=== PATIENT | male | born 2000 | race African-American/Black ===

== ENCOUNTER 2023-09-23 06:09 | Emergency (ER) | payer OTHER ==
[~2023-09-23] VITALS: Ht 188 cm; Wt 77.7 kg
[~2023-09-23 06:09] MED LIST: LISI10TA22 PO; OMEP1CAP73 PO; TRAZ-252 PO; med rec comment
[2023-09-23] MEDS ORDERED: GNPLIQ67 PO (06:17)
[2023-09-23] MEDS ORDERED: MELA10CA PO (06:17)
[2023-09-23] MEDS ORDERED: MED REC IN PROGRESS XX SCH (08:20)
[2023-09-23 08:52] LABS: METHADONE URINE NEGATIVE (NEGATIVE); OPIATES URINE NEGATIVE (NEGATIVE)
[2023-09-23 08:53] LABS: AMPHETAMINES LEVEL URINE NEGATIVE (NEGATIVE); BARBITURATES URINE NEGATIVE (NEGATIVE); BENZODIAZEPINES URINE NEGATIVE (NEGATIVE); CANNABINOIDS URINE NEGATIVE (NEGATIVE); COCAINE METABOLITE URINE NEGATIVE (NEGATIVE); PHENCYCLIDINE URINE NEGATIVE (NEGATIVE)
[2023-09-23 09:13] LABS: HEMOGLOBIN 14.8 g/dl (13.5-17.5); MEAN CORPUSCULAR HGB CONC 35.2 g/dl (32.0-36.5); MEAN CORPUSCULAR VOLUME 93.5 fl (80.0-96.0); PLATELET COUNT, AUTOMATED 271 10^3/uL (150-450); RED BLOOD COUNT 4.49 10^6/uL (4.30-6.10)
[2023-09-23 09:44] LABS: ETHYL ALCOHOL (ETHANOL) < 0.003 % (0.000-0.010)
[2023-09-23 09:46] LABS: ALBUMIN 4.9 G/DL (3.2-5.2); ALKALINE PHOSPHATASE 65 U/L (46-116); ALT/SGPT 24 U/L (7.0-40); AST/SGOT 53 U/L (<34); BILIRUBIN,DIRECT 0.3 MG/DL (<0.4); BILIRUBIN,TOTAL 0.9 MG/DL (0.3-1.2); BLOOD UREA NITROGEN 8 MG/DL (9-23); CALCIUM LEVEL 10.2 MG/DL (8.5-10.1); CARBON DIOXIDE LEVEL 28 MMOL/L (20-31); CHLORIDE LEVEL 100 MMOL/L (98-107); CREATININE FOR GFR 0.88 MG/DL (0.70-1.30); GLOMERULAR FILTRATION RATE > 60.0 (>60); GLUCOSE, FASTING 97 MG/DL (60-100); POTASSIUM SERUM 3.9 MMOL/L (3.5-5.1); SALICYLATE LEVEL < 3.0 MG/DL (<30); SODIUM LEVEL 138 MMOL/L (136-145); TOTAL PROTEIN 8.5 G/DL (5.7-8.2)
[2023-09-23 09:48] LABS: THYROID STIMULATING HORMONE 3.375 uIU/ML (0.55-4.78)
[2023-09-23] MEDS ORDERED: MED REC CURRENTLY UNOBTAINABLE XX SCH (10:00)
[2023-09-23] MEDS ORDERED: HOME MED LIST COMPLETE! XX SCH (10:45)
[2023-09-23] MEDS ORDERED: traZODone 50 MG TAB PO PRN (11:30)
[2023-09-23] MEDS: OMEPRAZOLE 20MG CAP PO SCH ×2 (11:50→14:10)
[2023-09-23 14:30] VITALS: BP 130/86; TEMP 97.7; O2SAT 100
== END 2023-09-23 15:03 ==
LOC: M ED 06:09
DX: R44.0 Auditory hallucinations (principal); I10 Essential (primary) hypertension

== ENCOUNTER 2023-10-29 10:27 | Inpatient (IN) | payer OTHER ==
[~2023-10-29] VITALS: Ht 188 cm; Wt 78.4 kg
[~2023-10-29 10:27] MED LIST changes: +GNPLIQ67 PO; +MELA10CA PO
[2023-10-29] MEDS: NS 1,000 ML IV ONE ×3 (12:24→17:56)
[2023-10-29] MEDS: diazePAM 5MG TABLET PO ONE (12:24)
[2023-10-29 12:46] LABS: BASO % 0.2 % (0.0-1.0); HEMATOCRIT 40.3 % (42.0-52.0); LYMPH # 0.9 10^3/uL (1.5-5.0); LYMPH % 19.4 % (24.0-44.0); MEAN CORPUSCULAR HEMOGLOBIN 34.2 pg (27.0-33.0); MEAN CORPUSCULAR HGB CONC 34.7 g/dl (32.0-36.5); MEAN CORPUSCULAR VOLUME 98.5 fl (80.0-96.0); MONO # 0.4 10^3/uL (0.0-0.8); MONO % 8.6 % (2.0-8.0); NEUTROPHILS # 3.2 10^3/uL (1.5-8.5); NEUTROPHILS % 71.3 % (36.0-66.0); PLATELET COUNT, AUTOMATED 306 10^3/uL (150-450); RED BLOOD COUNT 4.09 10^6/uL (4.30-6.10); WHITE BLOOD COUNT 4.4 10^3/uL (4.0-10.0)
[2023-10-29 12:56] LABS: ERYTHROCYTE SEDIMENTATION RATE 13 mm/hr (0-15)
[2023-10-29 13:15] LABS: ETHYL ALCOHOL (ETHANOL) 0.064 % (0.000-0.010)
[2023-10-29 13:16] LABS: C REACTIVE PROTEIN QUANTITATIV < 0.40 MG/DL (<1.0)
[2023-10-29 13:17] LABS: ALBUMIN 4.5 G/DL (3.2-5.2); ALKALINE PHOSPHATASE 65 U/L (46-116); ALT/SGPT 81 U/L (7.0-40); AST/SGOT 96 U/L (<34); BILIRUBIN,DIRECT 0.1 MG/DL (<0.4); BILIRUBIN,TOTAL 0.4 MG/DL (0.3-1.2); BLOOD UREA NITROGEN 9 MG/DL (9-23); CALCIUM LEVEL 9.9 MG/DL (8.5-10.1); CARBON DIOXIDE LEVEL 24 MMOL/L (20-31); CHLORIDE LEVEL 103 MMOL/L (98-107); CK-MB VALUE MASS 3.3 NG/ML (<3.6); CREATININE FOR GFR 0.86 MG/DL (0.70-1.30); GLOMERULAR FILTRATION RATE > 60.0 (>60); GLUCOSE, FASTING 102 MG/DL (60-100); POTASSIUM SERUM 4.3 MMOL/L (3.5-5.1); SALICYLATE LEVEL < 3.0 MG/DL (<30); SODIUM LEVEL 140 MMOL/L (136-145); TOTAL PROTEIN 7.6 G/DL (5.7-8.2)
[2023-10-29 13:20] LABS: THYROID STIMULATING HORMONE 2.038 uIU/ML (0.55-4.78)
[2023-10-29] MEDS ORDERED: OMEP-173 PO (13:41)
[2023-10-29] MEDS ORDERED: PANT40TA29 PO (13:42)
[2023-10-29] MEDS ORDERED: CHOL12508 PO (13:44)
[2023-10-29 13:45] LABS: CPK CREATINE PHOSPHOKINASE 1133 U/L (46-171); MB/CK RELATIVE INDEX 0.29 (< OR =4)
[2023-10-29] MEDS ORDERED: TRAZ-252 PO (13:46)
[2023-10-29] MEDS ORDERED: GEOD40CA13 PO (13:46)
[2023-10-29 14:48] LABS: CK-MB VALUE MASS 2.9 NG/ML (<3.6); MB/CK RELATIVE INDEX 0.24 (< OR =4)
[2023-10-29 15:20] LABS: AMPHETAMINES LEVEL URINE NEGATIVE (NEGATIVE); BARBITURATES URINE NEGATIVE (NEGATIVE); BENZODIAZEPINES URINE NEGATIVE (NEGATIVE); CANNABINOIDS URINE NEGATIVE (NEGATIVE); COCAINE METABOLITE URINE NEGATIVE (NEGATIVE); METHADONE URINE NEGATIVE (NEGATIVE); OPIATES URINE NEGATIVE (NEGATIVE); PHENCYCLIDINE URINE NEGATIVE (NEGATIVE)
[2023-10-29] MEDS: LORazepam 2 MG/ML 1ML VIAL IV STA (15:57)
[2023-10-29] MEDS ORDERED: OMEG10002 PO (17:45)
[2023-10-29] MEDS ORDERED: HOME MED LIST COMPLETE! XX SCH (17:50)
[2023-10-29] MEDS ORDERED: LORazepam 2 MG TAB PO PRN (17:55)
[2023-10-29 18:20] LABS: RSV AMPLIFICATION NEGATIVE (NEGATIVE)
[2023-10-29] MEDS: THIAMINE 100 MG TAB PO SCH (18:58)
[2023-10-29] MEDS ORDERED: ZIPRASIDONE 20MG CAPSULE (GEODON) PO SCH (21:00)
[2023-10-29] MEDS: traZODone 50 MG TAB PO SCH (21:31)
[2023-10-30 06:01] VITALS: O2SAT 100
[2023-10-30 06:06] VITALS: TEMP 97.9
[2023-10-30 06:46] LABS: BASO % 0.3 % (0.0-1.0); EOS % 0.3 % (0.0-3.0); HEMATOCRIT 37.4 % (42.0-52.0); LYMPH # 1.2 10^3/uL (1.5-5.0); LYMPH % 37.7 % (24.0-44.0); MEAN CORPUSCULAR HEMOGLOBIN 34.4 pg (27.0-33.0); MEAN CORPUSCULAR HGB CONC 34.8 g/dl (32.0-36.5); MEAN CORPUSCULAR VOLUME 98.9 fl (80.0-96.0); MONO # 0.5 10^3/uL (0.0-0.8); MONO % 16.1 % (2.0-8.0); NEUTROPHILS # 1.4 10^3/uL (1.5-8.5); NEUTROPHILS % 44.9 % (36.0-66.0); PLATELET COUNT, AUTOMATED 241 10^3/uL (150-450); RED BLOOD COUNT 3.78 10^6/uL (4.30-6.10); WHITE BLOOD COUNT 3.1 10^3/uL (4.0-10.0)
[2023-10-30 07:00] VITALS: BP 136/83
[2023-10-30 07:49] LABS: BLOOD UREA NITROGEN 7 MG/DL (9-23); CALCIUM LEVEL 9.1 MG/DL (8.5-10.1); CARBON DIOXIDE LEVEL 24 MMOL/L (20-31); CHLORIDE LEVEL 104 MMOL/L (98-107); CPK CREATINE PHOSPHOKINASE 834 U/L (46-171); CREATININE FOR GFR 0.93 MG/DL (0.70-1.30); GLOMERULAR FILTRATION RATE > 60.0 (>60); GLUCOSE, FASTING 69 MG/DL (60-100); POTASSIUM SERUM 3.7 MMOL/L (3.5-5.1); SODIUM LEVEL 137 MMOL/L (136-145)
[2023-10-30 08:10] LABS: CK-MB VALUE MASS 1.9 NG/ML (<3.6); MB/CK RELATIVE INDEX 0.22 (< OR =4)
[2023-10-30 08:31] VITALS: BP 136/83
[2023-10-30] MEDS: MULTIVITAMINS/MINERALS THERAP 1 TAB PO SCH (08:31)
[2023-10-30] MEDS: FOLIC ACID 1MG TAB PO SCH (08:31)
[2023-10-30 09:41] LABS: ALBUMIN 3.3 G/DL (3.2-5.2); ALKALINE PHOSPHATASE 58 U/L (46-116); ALT/SGPT 59 U/L (7.0-40); AST/SGOT 59 U/L (<34); BILIRUBIN,DIRECT 0.2 MG/DL (<0.4); BILIRUBIN,TOTAL 0.7 MG/DL (0.3-1.2)
== END 2023-10-30 12:00 | disposition home or self-care (01) | DRG 92 ==
LOC: M ED 10:27 → M ED INP 17:51
PROVIDERS: ADMIT Internal Medicine Nephrology; ATTEND Internal Medicine Nephrology
DX: G24.02 Drug induced acute dystonia (principal); M62.82 Rhabdomyolysis; I10 Essential (primary) hypertension; K21.9 Gastro-esophageal reflux disease without esophagitis; M43.6 Torticollis; T43.595A Adverse effect of other antipsychotics and neuroleptics, initial encounter; R94.31 Abnormal electrocardiogram [ECG] [EKG]; R74.01 Elevation of levels of liver transaminase levels; Z79.899 Other long term (current) drug therapy; Z91.013 Allergy to seafood

== ENCOUNTER 2024-07-17 21:10 | Inpatient (IN) | payer OTHER ==
[~2024-07-17] VITALS: Ht 188 cm; Wt 77.5 kg
[~2024-07-17 21:10] MED LIST changes: +CHOL12508 PO; +OMEG10002 PO; +OMEP-173 PO; +PANT40TA29 PO; +ZIPR40CA27 PO
[2024-07-17 22:14] LABS: HEMATOCRIT 42.7 % (42.0-52.0); HEMOGLOBIN 15.5 g/dl (13.5-17.5); MEAN CORPUSCULAR HGB CONC 36.3 g/dl (32.0-36.5); MEAN CORPUSCULAR VOLUME 93.6 fl (80.0-96.0); PLATELET COUNT, AUTOMATED 275 10^3/uL (150-450); RED BLOOD COUNT 4.56 10^6/uL (4.30-6.10); WHITE BLOOD COUNT 5.7 10^3/uL (4.0-10.0)
[2024-07-17 22:30] LABS: AMPHETAMINES LEVEL URINE NEGATIVE (NEGATIVE); BARBITURATES URINE NEGATIVE (NEGATIVE); BENZODIAZEPINES URINE NEGATIVE (NEGATIVE); CANNABINOIDS URINE NEGATIVE (NEGATIVE); COCAINE METABOLITE URINE NEGATIVE (NEGATIVE); METHADONE URINE NEGATIVE (NEGATIVE); OPIATES URINE NEGATIVE (NEGATIVE); PHENCYCLIDINE URINE NEGATIVE (NEGATIVE)
[2024-07-17 22:32] LABS: ETHYL ALCOHOL (ETHANOL) 0.006 % (0.000-0.010)
[2024-07-17 22:33] LABS: SALICYLATE LEVEL < 3.0 MG/DL (<30)
[2024-07-17 22:34] LABS: ALBUMIN 4.7 G/DL (3.2-5.2); ALKALINE PHOSPHATASE 74 U/L (40-129); ALT/SGPT 29 U/L (7.0-40); AST/SGOT 57 U/L (<34); BILIRUBIN,DIRECT 0.3 MG/DL (<0.4); BILIRUBIN,TOTAL 0.8 MG/DL (0.3-1.2); BLOOD UREA NITROGEN 17 MG/DL (9-23); CALCIUM LEVEL 10.6 MG/DL (8.5-10.1); CARBON DIOXIDE LEVEL 23 MMOL/L (20-31); CHLORIDE LEVEL 102 MMOL/L (98-107); CREATININE FOR GFR 1.03 MG/DL (0.70-1.30); GLOMERULAR FILTRATION RATE > 60.0 (>60); GLUCOSE, FASTING 97 MG/DL (60-100); POTASSIUM SERUM 3.4 MMOL/L (3.5-5.1); SODIUM LEVEL 139 MMOL/L (136-145); TOTAL PROTEIN 8.2 G/DL (5.7-8.2)
[2024-07-17 22:36] LABS: THYROID STIMULATING HORMONE 3.703 uIU/ML (0.55-4.78)
[2024-07-17 22:39] LABS: CPK CREATINE PHOSPHOKINASE 683 U/L (46-171)
[2024-07-18] MEDS: OLANZapine INTRAMUSCULAR 10MG VIAL IM ONE (00:03)
[2024-07-18] MEDS: LORazepam 2 MG/ML 1ML VIAL IM ONE (00:03)
[2024-07-18] MEDS ORDERED: ACETAMINOPHEN 325 MG TAB PO PRN (00:40)
[2024-07-18] MEDS ORDERED: LORazepam 1 MG TAB PO PRN (00:40)
[2024-07-18] MEDS ORDERED: IBUPROFEN 400MG TAB PO PRN (00:40)
[2024-07-18] MEDS ORDERED: MAALOX 30 ML SUSP *UDC PO PRN (00:40)
[2024-07-18] MEDS ORDERED: MOM 30ML SUSPENSION UDC PO PRN (00:40)
[2024-07-18] MEDS ORDERED: MED REC CURRENTLY UNOBTAINABLE XX SCH (08:30)
[2024-07-18] MEDS: OLANZapine 5 MG TAB PO SCH (09:04)
[2024-07-18] MEDS ORDERED: LEXA5TAB13 PO (10:00)
[2024-07-18] MEDS ORDERED: HOME MED LIST COMPLETE! XX SCH (10:00)
[2024-07-18] MEDS ORDERED: ROZE8TAB16 PO (10:00)
[2024-07-18 11:50] VITALS: BP 134/72; TEMP 98.4; O2SAT 100
[2024-07-18 14:47] VITALS: BP 128/66; TEMP 97.6; O2SAT 100
[2024-07-19 06:57] VITALS: BP 122/65; TEMP 98.4; O2SAT 100
[2024-07-19 07:41] LABS: CHOLESTEROL RISK RATIO 2.43 (<5); HDL CHOLESTEROL 108.1 MG/DL (>40); LDL CHOLESTEROL 141.1 MG/DL (<100); NON-HDL-C 154.9 MG/DL
[2024-07-19 15:02] VITALS: BP 142/97; TEMP 99; O2SAT 99
[2024-07-19] MEDS: traZODone 50 MG TAB PO PRN (20:53)
[2024-07-20 06:47] VITALS: BP 140/74; TEMP 97.8; O2SAT 99
[2024-07-20 15:30] VITALS: BP 126/77; TEMP 98.3; O2SAT 100
[2024-07-21 06:25] VITALS: BP 132/74; TEMP 98; O2SAT 100
[2024-07-21 15:45] VITALS: BP 128/66; TEMP 98.1; O2SAT 99
[2024-07-21] MEDS: RAMELTEON 8 MG TAB (ROZEREM) PO SCH (20:35)
[2024-07-21] MEDS: traZODone 50 MG TAB PO ONE (20:55)
[2024-07-22 06:36] VITALS: BP 136/70; TEMP 98.3; O2SAT 100
[2024-07-22 15:30] VITALS: BP 126/60; TEMP 97.5; O2SAT 97
[2024-07-22] MEDS: diphenhydrAMINE 25MG CAP PO PRN (20:27)
[2024-07-23 15:59] VITALS: BP 130/63; TEMP 98.2; O2SAT 100
[2024-07-23] MEDS: OLANZapine 10 MG TAB PO SCH (20:01)
[2024-07-23 21:36] VITALS: BP 130/63; TEMP 98.2; O2SAT 100
[2024-07-24 14:59] VITALS: BP 129/62; TEMP 98; O2SAT 99
[2024-07-24] MEDS: OLANZapine ORAL DISINTEGRATING TAB 5MG PO PRN (20:38)
[2024-07-25 06:41] VITALS: BP 117/58; TEMP 97; O2SAT 100
[2024-07-25 16:33] VITALS: BP 115/58; TEMP 98.2; O2SAT 100
[2024-07-26 06:21] VITALS: BP 108/56; TEMP 98; O2SAT 99
[2024-07-26 15:23] VITALS: BP 129/59; TEMP 98.4; O2SAT 100
[2024-07-27 06:28] VITALS: BP 131/72; TEMP 97.5; O2SAT 97
[2024-07-27 16:09] VITALS: BP 116/57; TEMP 98.5; O2SAT 100
[2024-07-28 06:21] VITALS: BP 133/67; TEMP 97.6; O2SAT 99
[2024-07-28 08:26] VITALS: BP 123/70
[2024-07-28 08:27] VITALS: BP 123/70
[2024-07-28] MEDS ORDERED: HALO10TA20 PO (08:47)
[2024-07-28] MEDS ORDERED: RAME8TAB2 PO (14:25)
== END 2024-07-28 11:55 | disposition home or self-care (01) | DRG 885 ==
LOC: M ED 21:10 → M ED INP 07-18 00:40 → M PSY 07-18 02:22
PROVIDERS: ADMIT Psychiatry & Neurology Psychiatry; ATTEND Psychiatry & Neurology Psychiatry
DX: F29 Unspecified psychosis not due to a substance or known physiological condition (principal); I10 Essential (primary) hypertension; K21.9 Gastro-esophageal reflux disease without esophagitis; F63.9 Impulse disorder, unspecified; Z79.899 Other long term (current) drug therapy; Z91.013 Allergy to seafood; F17.200 Nicotine dependence, unspecified, uncomplicated

== ENCOUNTER 2024-10-28 06:47 | Inpatient (IN) | payer OTHER ==
[~2024-10-28] VITALS: Ht 188 cm; Wt 81.7 kg
[~2024-10-28 06:47] MED LIST changes: +HALO10TA20 PO; +LEXA5TAB13 PO; +RAME8TAB2 PO; +ROZE8TAB16 PO
[2024-10-28] MEDS: LORazepam 2 MG/ML 1ML VIAL IM ONE (07:25)
[2024-10-28] MEDS: OLANZapine INTRAMUSCULAR 10MG VIAL IM ONE (07:25)
[2024-10-28 07:55] LABS: HEMATOCRIT 40.9 % (42.0-52.0); HEMOGLOBIN 15.1 g/dl (13.5-17.5); MEAN CORPUSCULAR HEMOGLOBIN 32.5 pg (27.0-33.0); PLATELET COUNT, AUTOMATED 303 10^3/uL (150-450); RED BLOOD COUNT 4.65 10^6/uL (4.30-6.10)
[2024-10-28 07:58] LABS: MEAN CORPUSCULAR HGB CONC 36.9 g/dl (32.0-36.5)
[2024-10-28] MEDS ORDERED: LEXA1TAB PO (08:04)
[2024-10-28 08:16] LABS: AMPHETAMINES LEVEL URINE NEGATIVE (NEGATIVE); BARBITURATES URINE NEGATIVE (NEGATIVE); BENZODIAZEPINES URINE NEGATIVE (NEGATIVE); COCAINE METABOLITE URINE NEGATIVE (NEGATIVE); METHADONE URINE NEGATIVE (NEGATIVE); OPIATES URINE NEGATIVE (NEGATIVE)
[2024-10-28 08:17] LABS: CANNABINOIDS URINE NEGATIVE (NEGATIVE); PHENCYCLIDINE URINE NEGATIVE (NEGATIVE)
[2024-10-28 08:57] LABS: SALICYLATE LEVEL < 3.0 MG/DL (<30)
[2024-10-28 09:00] LABS: THYROID STIMULATING HORMONE 3.638 uIU/ML (0.55-4.78)
[2024-10-28] MEDS: FOLIC ACID 1MG TAB PO SCH (09:00)
[2024-10-28] MEDS: MULTIVITAMINS/MINERALS THERAP 1 TAB PO SCH (09:00)
[2024-10-28 09:07] LABS: ALBUMIN 3.8 G/DL (3.2-5.2); ALKALINE PHOSPHATASE 100 U/L (40-129); ALT/SGPT 65 U/L (7.0-40); AST/SGOT 117 U/L (<34); BILIRUBIN,DIRECT 0.2 MG/DL (<0.4); BILIRUBIN,TOTAL 0.4 MG/DL (0.3-1.2); BLOOD UREA NITROGEN 9 MG/DL (9-23); CALCIUM LEVEL 8.8 MG/DL (8.5-10.1); CARBON DIOXIDE LEVEL 26 MMOL/L (20-31); CHLORIDE LEVEL 100 MMOL/L (98-107); CREATININE FOR GFR 0.86 MG/DL (0.70-1.30); ETHYL ALCOHOL (ETHANOL) 0.436 % (0.000-0.010); GLOMERULAR FILTRATION RATE > 60.0 (>60); GLUCOSE, FASTING 108 MG/DL (60-100); POTASSIUM SERUM 3.2 MMOL/L (3.5-5.1); SODIUM LEVEL 143 MMOL/L (136-145); TOTAL PROTEIN 7.4 G/DL (5.7-8.2)
[2024-10-28] MEDS ORDERED: LORazepam 2 MG TAB PO PRN (09:30)
[2024-10-28] MEDS: THIAMINE 100 MG TAB PO SCH (10:00)
[2024-10-28] MEDS: POTASSIUM CHLORIDE 10MEQ SR TABLET PO ONE (21:05)
[2024-10-28] MEDS ORDERED: HOME MED LIST COMPLETE! XX SCH (22:40)
[2024-10-29 12:18] VITALS: BP 144/82; TEMP 98.1; O2SAT 96
[2024-10-29 12:45] VITALS: BP 144/82
[2024-10-29] MEDS ORDERED: LORazepam 2 MG TAB PO PRN (12:45)
[2024-10-29] MEDS: THIAMINE 100 MG TAB PO SCH (20:22)
[2024-10-29] MEDS: traZODone 50 MG TAB PO PRN (20:22)
[2024-10-29 21:35] VITALS: BP 148/77
[2024-10-30] VITALS (9 sets, daily range): BP systolic 132–164; BP diastolic 74–105; TEMP 97.9–98.8; O2SAT 98–99
[2024-10-30] MEDS: OLANZapine ORAL DISINTEGRATING TAB 5MG PO PRN (02:00)
[2024-10-30] MEDS: LORazepam 0.5 MG TAB PO ONE (03:09)
[2024-10-30] MEDS: FOLIC ACID 1MG TAB PO SCH (08:13)
[2024-10-30] MEDS: MULTIVITAMINS/MINERALS THERAP 1 TAB PO SCH (08:13)
[2024-10-30] MEDS: ESCITALOPRAM OXALATE 10 MG TAB (LEXAPRO) PO SCH (09:43)
[2024-10-30] MEDS: traZODone 50 MG TAB PO SCH (20:55)
[2024-10-31 06:30] VITALS: BP 142/96
[2024-10-31 07:05] VITALS: BP 142/96; TEMP 97.3; O2SAT 98
[2024-10-31] MEDS: RISPERIDONE 1 MG TAB PO SCH (13:23)
[2024-10-31] MEDS: ACETAMINOPHEN 325 MG TAB PO PRN (13:28)
[2024-10-31 14:00] VITALS: BP 142/94
[2024-10-31 17:22] VITALS: BP 140/66; TEMP 98.3; O2SAT 100
[2024-11-01] VITALS: BP 128/88
[2024-11-01 06:40] VITALS: BP 137/82; TEMP 97.9; O2SAT 100
[2024-11-01 15:50] VITALS: BP 135/89; TEMP 98.1; O2SAT 100
[2024-11-02 06:35] VITALS: BP 125/80; TEMP 97.8; O2SAT 100
[2024-11-02] MEDS: NICOTINE POLACRILEX 2 MG GUM PO PRN (11:28)
[2024-11-02 15:48] VITALS: BP 142/85; TEMP 97.8; O2SAT 100
[2024-11-03 06:27] VITALS: BP 108/62; TEMP 97.6; O2SAT 100
[2024-11-03 08:04] VITALS: BP 150/104
[2024-11-03 16:39] VITALS: BP 156/91; TEMP 97.6; O2SAT 100
[2024-11-04 06:41] VITALS: BP 136/85; TEMP 98.4; O2SAT 100
[2024-11-04 08:31] VITALS: BP 133/80
[2024-11-04 15:37] VITALS: BP 155/82; TEMP 97.8; O2SAT 100
[2024-11-05 06:29] VITALS: BP 141/76; TEMP 97.3; O2SAT 100
[2024-11-05 08:48] VITALS: BP 129/85
[2024-11-05 16:55] VITALS: BP 140/85; TEMP 97.7; O2SAT 100
[2024-11-06] MEDS ORDERED: RISP1TAB42 PO (03:17)
[2024-11-06] MEDS ORDERED: TRAZ-252 PO (03:17)
[2024-11-06] MEDS ORDERED: LISI10TA22 PO (03:17)
[2024-11-06] MEDS ORDERED: LEXA1TAB PO (03:17)
[2024-11-06] MEDS ORDERED: HYDR-3363 PO (03:17)
[2024-11-06 06:26] VITALS: BP 135/66; TEMP 96.9; O2SAT 98
[2024-11-06 15:57] VITALS: BP 130/78; TEMP 97.7; O2SAT 100
[2024-11-07 06:50] VITALS: BP 113/73; TEMP 97.2; O2SAT 100
[2024-11-07 17:34] VITALS: BP 124/74; TEMP 98; O2SAT 100
[2024-11-08 06:45] VITALS: BP 123/76; TEMP 97; O2SAT 100
[2024-11-08 09:30] VITALS: BP 134/65
[2024-11-08 15:47] VITALS: BP 114/59; TEMP 97.7; O2SAT 98
[2024-11-09 06:35] VITALS: BP 122/65; TEMP 98.1; O2SAT 98
[2024-11-09 15:56] VITALS: BP 133/61; TEMP 97.2; O2SAT 98
[2024-11-10 06:48] VITALS: BP 130/76; TEMP 98; O2SAT 100
[2024-11-10 08:45] VITALS: BP 116/62
[2024-11-10 08:46] VITALS: BP 116/62
== END 2024-11-10 10:10 | disposition home or self-care (01) | DRG 885 ==
LOC: M ED 06:47 → M ED INP 10-29 09:56 → M PSY 10-29 11:37 → UNDODISIN 11-10 10:27
PROVIDERS: ADMIT Psychiatry & Neurology Psychiatry; ATTEND Psychiatry & Neurology Psychiatry
DX: F33.1 Major depressive disorder, recurrent, moderate (principal); F10.239 Alcohol dependence with withdrawal, unspecified; F29 Unspecified psychosis not due to a substance or known physiological condition; Z79.899 Other long term (current) drug therapy; Z91.013 Allergy to seafood; E87.6 Hypokalemia; R74.01 Elevation of levels of liver transaminase levels; F17.290 Nicotine dependence, other tobacco product, uncomplicated; F41.1 Generalized anxiety disorder; Z91.148 Patient's other noncompliance with medication regimen for other reason